=== PATIENT | male | born 1965 | race Caucasian/White ===

== ENCOUNTER 2020-10-20 08:55 | Observation (INO) | payer OTHER, SELFPAY ==
[2020-10-20] VITALS (10 sets, daily range): BP systolic 113–186; BP diastolic 70–109; PULSE 57–99; RESP 12–20; TEMP 36.4–37.3; O2SAT 93–100; BMI 21.1
--- NOTE | 2020-10-20 09:11 | DI.RAD.S_ITS ---
PROCEDURE: XR ABDOMEN 1V INDICATIONS: rectal FB TECHNIQUE: One view of the abdomen acquired. COMPARISON: None. FINDINGS: Surgical changes and devices: None. Bowel: Bowel gas pattern is normal. Soft tissues: No suspicious abdominal calcifications. Visualized solid organ contours appear normal in size. Bones: No suspicious bony lesions. IMPRESSION: No radiopaque foreign body is seen. Dictated by: Teofilo Valadez M.D. on 10/20/2020 at 8:36 Approved by: Teofilo Valadez M.D. on 10/20/2020 at 8:36
--- NOTE | 2020-10-20 09:16 | PC.NURSE ---
reports he has a large dildo stuck in his rectum reports he can feel it with his fingers but cant grab it. says his finger have blood on them after trying to remove dildo
--- NOTE | 2020-10-20 09:37 | ED_ITS ---
HPI - Skin/Abscess/Foreign Bdy General Chief complaint: Skin/Abscess/Foreign Body Stated complaint: dildo in rectum Time Seen by Provider: 10/20/20 09:11 Source: patient Mode of arrival: Ambulatory Limitations: no limitations History of Present Illness HPI narrative: 55-year-old male who is here for evaluation of a foreign body in his rectum. Patient states that last evening a silicone rubber sex toy any CT stuck in his rectum. He has never had anything like this happen before. States he tried to remove it on his own but could not. This morning did have some difficulty urinating but has since been able to urinate. Came in because when he tried to remove it on his own there was some bleeding involved. Related Data Home Medications Medication Instructions Recorded Confirmed No Known Home Medications 10/20/20 10/20/20 Allergies Allergy/AdvReac Type Severity Reaction Status Date / Time aspirin Allergy Hives Verified 10/20/20 14:27 Review of Systems Constitutional Constitutional: Denies fever(s) Cardiovascular Cardiovascular: Denies chest pain and Denies dyspnea Respiratory Respiratory: Denies dyspnea Gastrointestinal Gastrointestinal: Denies abdominal pain Comments: Rectal pain Genitourinary Comments: Some difficulty urinating but this has resolved Musculoskeletal Musculoskeletal: Denies arthralgias Integumentary/Breasts Skin/Breast: Denies rash Neurologic Neurologic: Denies behavioral changes Psychiatric Psychiatric: Denies behavioral changes Hematologic/Lymphatic On Anticoagulants: No Allergic/Immunologic Allergic/Immunologic: Denies urticaria Patient History Medical History Healthy adult Social History household members: spouse Smoking Status: Never smoker alcohol intake: current Smoking Status: Never smoker alcohol intake frequency: 0-2 drinks per day Substance Use Type: does not use Exam Initial Vital Signs Initial Vital Signs: Vital Signs Temperature 97.9 F 10/20/20 09:03 Pulse Rate 78 10/20/20 09:03 Respiratory Rate 18 10/20/20 09:03 Blood Pressure 183/109 H 10/20/20 09:03 Pulse Oximetry 99 10/20/20 09:03 Const General: cooperative and comfortable Limitations: mental status not altered HENMT Head: normal to inspection and normocephalic Resp Effort & Inspection: normal respiratory effort Cardio Rate: regular rate GI Inspection: non-distended Palpation: soft Rectal Exam: visual inspection normal and No normal sphincter tone Other: With digital examination was able to feel a very small amount of the silicone material however was unable to grasp it. An anoscope was then used h owever was unable to visualize any foreign body. Skin Lesions: no lesions Rashes: no rashes Neuro General: patient alert and patient awake Cognition: normal cognition Speech: speech normal Extrem General: capillary refill normal Psych Appearance: grossly normal and well kempt Course Orders Ordered: ED Orders 10/20/20 13:15 COVID19 Stat Discontinued Medications Acetaminophen (Acetaminophen 325 Mg Tablet) 650 mg PO PACUNOW PRN PRN Reason: Pain, Mild (1-3) Fentanyl (Fentanyl 100 Mcg/2 Ml Inj) 0 mcg IV Q5M PRN PRN Reason: Pain, Moderate (4-6) Lactated Ringer's (Lactated Ringers) 1,000 mls @ 42 mls/hr IV NOW ONE Stop: 10/21/20 14:14 Last Infusion: 10/20/20 17:13 Dose: 0 mls/hr Documented by: Admin: 10/20/20 15:21 Dose: 42 mls/hr Documented by: Infusion: 10/20/20 15:21 Dose: 42 mls/hr Documented by: Admin: 10/20/20 14:26 Dose: 42 mls/hr Documented by: ISREAL Ondansetron HCl (Ondansetron 4 Mg/2 Ml Inj) 4 mg IV NOW PRN PRN Reason: Nausea And Vomiting Oxycodone HCl (Oxycodone Ir 5 Mg Tablet) 5 mg PO PACUNOW PRN PRN Reason: Mild or moderate pain Oxycodone/Acetaminophen (Oxycodone/Acetaminophen 5/325 Tablet) 1 tab PO PACUNOW PRN PRN Reason: Mild or Moderate Pain Vital Signs Vital signs: Vital Signs - 8 hr 10/20/20 14:19 Temperature 97.6 F Pulse Rate 75 Respiratory Rate 16 Blood Pressure 186/97 H Pulse Oximetry 100 MDM - Skin/Abscess/Foreign Bdy Lab Data Labs: Lab Results 10/20/20 Range/Units 13:15 SARS-CoV-2 (PCR) Negative (Negative) Imaging Data Abdominal x-ray: Radiologist's Impression: [address] [id number] ReportSigned Patient: Raymundo Barragan JMR#: [id number]: [id number]:[id number]/Sex: 55 / MDate of Service: 10/20/20Loc: EDAccession Number: [id number] Procedure: XR abdomen 1V Ordering Provider: Jairo Becerra D.O. PROCEDURE: XR ABDOMEN 1V INDICATIONS: rectal FB TECHNIQUE: One view of the abdomen acquired. COMPARISON: None. FINDINGS: Surgical changes and devices: None. Bowel: Bowel gas pattern is normal. Soft tissues: No suspicious abdominal calcifications. Visualized solid organ contours appear normal in size. Bones: No suspicious bony lesions. IMPRESSION: No radiopaque foreign body is seen. Dictated by: Teofilo Valadez M.D. on 10/20/2020 at 8:36 Approved by: Teofilo Valadez M.D. on 10/20/2020 at 8:3 MDM Narrative Medical decision making narrative: Dr. Onofre was consulted who came to the emergency department evaluated the patient and then took the patient to the operating room for removal. There is no signs of perforation on the x-ray. Discharge Plan Departure Patient Disposition: Admitted as Observation Clinical Impression: Rectal foreign body Admit Date/Time: 10/20/20 15:10 Admit Provider: Lazaro Onofre
--- NOTE | 2020-10-20 13:35 | PM.HP.1 ---
History of Present Illness History of Present Illness Date Patient Seen: 10/20/20 Time Patient Seen: 13:35 Chief complaint: dildo in rectum Narrative: 55 male presented to the emergency with a dildo in his rectum unable to retrieve since last night. No nausea vomiting or abdominal pain. Abdominal x-ray no free air. ER physcian can palpate the base of the object but can not grasp. Last solid food last night no prior surgeries. Patient History Medical History Healthy adult Family & Social History Safety & Behavioral: Feels Safe in Current Yes Environment Been Physically Hurt or No Threatened By a Person Tobacco & Substance use: Smoking Status Never smoker alcohol intake frequency 0-2 drinks per day Substance Use Type does not use Meds Home Medications and Allergies Home Medications Medication Instructions Recorded Confirmed Type No Known Home Medications 10/20/20 10/20/20 History Allergies Allergy/AdvReac Type Severity Reaction Status Date / Time aspirin Allergy Hives Verified 10/20/20 09:08 Review of Systems Review of Systems ROS: Yes All systems reviewed with the patient and are negative except as otherwise documented Exam Vital Signs (past 8 hours): - 10/20/20 09:03 Temperature 97.9 F Pulse Rate 78 Respiratory Rate 18 Blood Pressure 183/109 H Pulse Oximetry 99 Oxygen Delivery Method Room Air Narrative Exam Narrative: Gen-adult male alert and oriented Neck-Supple no lymphadenopathy Chest-non labored resp Cardiac-regular rate and rhythm Abdomen-Soft nontender Ext-WWP without edema Assessment & Plan Assessment and plan (1) Rectal foreign body: Status: Acute Assessment & Plan narrative: 55 m with a rectal foreign body no evidence of perforation. -OR-retrieval of the foreign body under sedation. If unable to retrieve manually may require exploratory laparotomy. Procedural risks discussed including bleeding, infection, damage to surrounding structures. Questions answered he is in agreement with this plan.
[2020-10-20 14:03] LABS: COVID19 -Nasal RAPID Negative (Negative)
[2020-10-20] MEDS: LACTATED RINGERS 1,000 ML 42 ML IV ×2 (14:26→15:21)
--- NOTE | 2020-10-20 15:47 | DI.RAD.S_ITS ---
PROCEDURE: XR ACUTE ABDOMEN SERIES INDICATIONS: r/o free air sp rectal FB removal TECHNIQUE: One view chest and two views of the abdomen were acquired. COMPARISON: None. FINDINGS: Surgical changes and devices: None. Chest: Lungs are clear. Heart size is normal. No pleural effusions. No pneumoperitoneum. Abdomen: Fecal stasis throughout the colon is seen. No evidence of bowel obstruction. No gross peritoneal free air.. No suspicious calcifications. Visualized solid organ contours appear normal. Bones: No suspicious bony lesions. IMPRESSION: Air and fecal matter is seen distending the colon. No gross peritoneal free air. No evidence of bowel obstruction. No acute cardiopulmonary pathology. Dictated by: Teofilo Valadez M.D. on 10/20/2020 at 16:12 Approved by: Teofilo Valadez M.D. on 10/20/2020 at 16:21
--- NOTE | 2020-10-20 15:57 | SUR.OPER ---
Lithotomy on padded OR bed, head on pillow, arms secured on padded arm boards at <90 degrees abduction. Legs secured in padded yellow fins stirrups.
--- NOTE | 2020-10-20 15:59 | SUR.OPER ---
silicone dildo removed from rectum intact.
--- NOTE | 2020-10-20 16:23 | P.OP_ITS ---
Operative Date/Time/Diagnoses Date of procedure: 10/20/20 Time of procedure: 16:28 Pre-op diagnosis: rectal foreign body Post-op diagnosis: same Procedure & Clinicians Procedure: removal of rectal foreign body Same procedure as scheduled: Yes Indications: 55M with a rectal foreign body no evidence of intestinal perforation. Surgeon: Lazaro Onofre Diagnostic Technologist: Woody Mendez Click Yes if Unassisted: No Anesthesia Type: General Operative Notes Findings: large rectal foreign body-dildo Specimen(s): none sent Estimated Blood Loss (mL): 100 Procedure in detail: Patient was brought to the OR and placed supine on table. General anesthesia was induced is intubated with a LMA. Bilateral lower extremity compression devices were applied. He was appropriately padded and placed into lithotomy position. Time-out was performed. Attempt was made to manually grasp the foreign body which was with in the rectum approximately 9 cm above the verge. Extremely difficult to grasp given the large size and the suction created by it within the rectum. There was a small tear in the rectal mucosa that was closed with an interrupted 0 Vicryl suture. Ultimately with manual reduction via the abdomen externally, the foreign body could be grasped and slowly retracted. Ultimately the foreign body was removed intact. The rectum was irrigated hemostasis was achieved he was transferred to the recovery room in stable condition. Prior to discharge she will require an abdominal x-ray to verify no free air Complications: none Post-operative Condition: stable Disposition: same day surgery
--- NOTE | 2020-10-20 17:17 | SUR.PHASEII ---
Verbal order received from Dr. Onofre for pt to be discharged from facility via taxi.
== END 2020-10-20 17:23 | disposition home or self-care (01) ==
LOC: ED 14:21 → OR 14:45 → ED 14:48 → AC 15:11
PROVIDERS: Admitting Provider Surgery; Emergency Provider Emergency Medicine; Visit Provider Surgery
PROC: (CPT 45990; principal; 2020-10-20 14:30)
DX: T18.5XXA Foreign body in anus and rectum, initial encounter (principal); Z20.822 Contact with and (suspected) exposure to COVID-19
CPT/HCPCS: 45915; 74018; 74022; 87635; 99218; 99283; C9803; G0378; J2405; J2704; J2765; J3010